=== PATIENT | male | born 1980 | race Caucasian/White ===

== ENCOUNTER 2024-07-29 16:22 | Emergency (ER) | payer SELFPAY ==
[~2024-07-29] VITALS: Ht 180.3 cm; Wt 75.0 kg
[2024-07-29 16:24] VITALS: TEMP 36.8
[2024-07-29] MEDS: MORPHINE SULFATE 2 MG/ML INJ (NOT FOR IM USE) IV ONE ×2 (17:16→18:40)
[2024-07-29] MEDS: PROPOFOL 200MG/20ML VIAL IV NR (18:41)
[2024-07-29 18:43] VITALS: O2SAT 100
[2024-07-29 20:28] VITALS: BP 149/99; PULSE 90; RESP 18; O2SAT 98
== END 2024-07-29 20:42 | disposition home or self-care (01) ==
LOC: ER 16:22
DX: S43.015A Anterior dislocation of left humerus, initial encounter (principal); W18.39XA Other fall on same level, initial encounter; Y93.89 Activity, other specified; Y92.89 Other specified places as the place of occurrence of the external cause; Y99.8 Other external cause status
CPT/HCPCS: 73030; 73060; 23650; 96374; 96376; 99152; 99291; J2704; J2270; Z7610 ×3; A4606; L3670